=== PATIENT | female | born 1980 | race African-American/Black ===

== ENCOUNTER → 2021-09-24 | Outpatient (CLI) | payer BC, OTHER ==
--- NOTE | 2021-10-22 11:55 | MM ---
Reason for Exam: Screening (asymptomatic). Patient History: Menarche at age 16. First Full-Term at age 20. Excisional Biopsy on the Left side. Excisional Biopsy on the Left side. 2006, Bilateral Implants. Maternal aunt had breast cancer. Maternal aunt had breast cancer. Maternal aunt had breast cancer. Risk Values: July 5 year model risk: 1.0%. Tissue Density: The breast tissue is extremely dense which could obscure a lesion on mammography. Findings: Analyzed By CAD. Mammotome biopsy clip left breast. Anterior upper outer quadrant shows obscured round roughly 10 mm adjacent densities. Group of punctate calcifications in the right breast noted. Overall Assessment: Incomplete: need additional imaging evaluation, BI-RAD 0 Management: Diagnostic Breast Ultrasound of the left breast. Targeted ultrasound now. Continue to attempt to obtain outside prior mammograms in patient with biopsy clip. Electronically signed and approved by: Dejuan Mcgee M.D.
== END | disposition home or self-care (01) ==
LOC: RADMAMWWP 12:13
PROVIDERS: ATTEND Family Medicine
DX: Z12.31 Encounter for screening mammogram for malignant neoplasm of breast (principal)
CPT/HCPCS: 77067

== ENCOUNTER → 2021-10-26 | Outpatient (CLI) | payer BC, OTHER ==
--- NOTE | 2021-10-26 13:54 | USB ---
Patient History: Menarche at age 16. First Full-Term at age 20. Excisional Biopsy on the Left side. Excisional Biopsy on the Left side. 2006, Bilateral Implants. Maternal aunt had breast cancer. Maternal aunt had breast cancer. Maternal aunt had breast cancer. Risk Values: July 5 year model risk: 1.0%. NCI Lifetime model risk: 10.8%. Technique: Method: Targeted. Prior Study Comparison: 09/24/2021 Bilateral MG screening mammo w CAD, [facility]. Findings: The upper outer quadrant of the left breast, the axilla of the left breast and the retroareolar of the left breast were scanned. Targeted scanning upper-outer quadrant left breast from 12:00 to 3:00 including the subareolar region and axilla. There is a large lobulated solid mass redemonstrated at the 1:00 position, zone A. This measures 5.2 x 3.6 x 2.0 cm. In comparison, compared to 07/02/2014, this measured 4.4 x 3.8 x 1.9 cm. Overall similar appearance though minimally larger now. We note that this area was previously biopsied and a clip is subtly visualized within the mass. No other solid or cystic lesion is seen. Underlying breast implant is noted.. Overall Assessment: Probably benign, BI-RAD 3 Management: Diagnostic Mammogram of both breasts in 1 year. 1. Large lobulated 1:00 periareolar mass within the left breast measuring up to 5.2 cm, slightly larger from 2015 where it measured 4.4 cm. 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 Further clinical management is recommended of this lesion. If it becomes symptomatic or progressive growth is noted, surgical consultation can be performed for excision. 2. Otherwise, one-year follow-up bilateral diagnostic mammograms at the time of the patient's annual study 3. The patient should continue monthly self breast exams. Electronically signed and approved by: Kolby Lopez M.D. Radiologist
== END | disposition home or self-care (01) ==
LOC: RADUSWWP 12:59
PROVIDERS: ATTEND Family Medicine
DX: R92.8 Other abnormal and inconclusive findings on diagnostic imaging of breast (principal)

== ENCOUNTER 2021-12-02 14:24 | Day surgery (SDC) | payer BC, OTHER ==
[2021-11-26 16:06] VITALS: BMI 26.6
--- NOTE | 2021-12-02 12:31 | P.HPOB ---
History of Present Illness H&P Date: 12/02/21 Chief Complaint: Menorrhagia 41-year-old presents for D&C, hysteroscopy, endometrial ablation with NovaSure due to menorrhagia. Review of Systems All systems: negative Constitutional: Denies chills, Denies fever Eyes: denies blurred vision, denies pain Ears, nose, mouth and throat: Denies headache, Denies sore throat Cardiovascular: Denies chest pain, Denies shortness of breath Respiratory: Denies cough Gastrointestinal: Denies abdominal pain, Denies diarrhea, Denies nausea, Denies vomiting Genitourinary: Denies dysuria, Denies hematuria Musculoskeletal: Denies myalgias Integumentary: Denies pruritus, Denies rash Neurological: Denies numbness, Denies weakness Psychiatric: Denies anxiety, Denies depression Endocrine: Denies fatigue, Denies weight change Past Medical History Past Medical History: Asthma Additional Past Medical History / Comment(s): Anemia with iron infusions., heavy menstrual periods. History of Any Multi-Drug Resistant Organisms: None Reported Past Surgical History: Breast Surgery Additional Past Surgical History / Comment(s): breast augmentation Past Anesthesia/Blood Transfusion Reactions: No Reported Reaction Additional Past Anesthesia/Blood Transfusion Reaction / Comment(s): Religiously opposed to blood transfusions-jehovah witness Past Psychological History: No Psychological Hx Reported Smoking Status: Former smoker Past Alcohol Use History: Occasional Additional Past Alcohol Use History / Comment(s): QUIT SMOKING 18 YRS AGO, SMOKED APPROX 2 YEARS. Past Drug Use History: None Reported Medications and Allergies Home Medications Medication Instructions Recorded Confirmed Type Albuterol Inhaler [Ventolin Hfa 2 puff INHALATION QID PRN 08/31/21 11/26/21 History Inhaler] Allergies Allergy/AdvReac Type Severity Reaction Status Date / Time No Known Allergies Allergy Verified 11/26/21 15:47 Exam Osteopathic Statement: *. No significant issues noted on an osteopathic structural exam other than those noted in the History and Physical/Consult. Heart: Regular rate and rhythm Lungs: Clear to auscultation bilaterally Abdomen: Soft, nontender Extremities: Negative Homans sign Assessment and Plan (1) Menorrhagia Status: Acute Code(s): N92.0 - EXCESSIVE AND FREQUENT MENSTRUATION WITH REGULAR CYCLE SNOMED Code(s): 090857479 Plan: 1. D&C, hysteroscopy, endometrial ablation with NovaSure
[~2021-12-02 14:24] MED LIST: DEXAMETHASONE SOD PHOSPHATE 4 MG/ML 1 ML VIAL IV ONE; HYDROmorphone 0.5 MG/0.5 ML SYRINGE IVP PRN; LACTATED RINGERS 1,000 ML IV SCH; LIDOCAINE 1% (10MG/ML) FOR IV START INTRADERMA PRN; MIDAZOLAM 2 MG/2 ML VIAL IV PRN; ONDANSETRON 4 MG/2 ML VIAL IVP ONE; Pre Op ABX Message 1 EACH MISC MISCELLANE ONE
[2021-12-02] MEDS ORDERED: MIDAZOLAM 2 MG/2 ML VIAL ONE (16:16)
[2021-12-02] MEDS ORDERED: PROPOFOL 10 MG/ML 20 ML VIAL IV ONE (16:16)
[2021-12-02] MEDS ORDERED: fentaNYL (PF) 50 MCG/ML 2 ML AMP ONE (16:16)
[2021-12-02] MEDS ORDERED: GLYCOPYRROLATE 0.2 MG/ML 2 ML VIAL ONE (16:16)
--- NOTE | 2021-12-02 17:08 | P.OP ---
Date of Procedure: 12/02/21 Preoperative Diagnosis: 1. Menorrhagia Postoperative Diagnosis: 1. Menorrhagia with anemia Procedure(s) Performed: D&C hysteroscopy ; attempted ablation with NovaSure but did not complete Anesthesia: MAC (LMA) Surgeon: Saima Reed Estimated Blood Loss (ml): 50 IV fluids (ml): 500 Urine output (ml): 20 Pathology: other (Endometrial curettings) Condition: stable Disposition: PACU Operative Findings: Uterus sounded to 14 cm. Polyp noted on hysteroscope. Large amount of endometrial curettings Description of Procedure: Patient name the operating room and general anesthesia was obtained without di fficulty. She is prepped and draped in normal sterile fashion dorsal lithotomy position, legs Placed in the candycane stirrups. Bladder was drained of all urine. Weighted speculum place in vagina and anterior lip the cervix was grasped with a double-tooth tenaculum. The cervix sounded to 3 cm and the uterus sounded to 14 cm making the cavity length 11 cm. The NovaSure only goes up to 6.5 cm. The cervix is dilated to #8 Hegar dilator. Hysteroscopy was performed and overall the uterus had a smooth contour but there was a polyp on the left side that was quite large. Polyp forceps were used to remove the polyp and sharp curet was used to gently obtain endometrial curettings. The NovaSure was introduced into the uterus with a cavity length of 6.5 cm, width 4.8 cm. Power 172 W. After several attempts the cavity assessment was not passed. Hysteroscopy was again performed and no areas of perforation were noted. I did use the curette again to get more tissue, changed the machine and the array as well as put some Vaseline gauze around the cervix to attempt to pass the cavity assessment. Cavity assessment again was not passed so the procedure was abandoned. Patient procedure well, sponge and instrument counts correct 2. She is taken to recovery in stable condition.
[2021-12-02 17:09] VITALS: TEMP 96.3
[2021-12-02 17:24] VITALS: RESP 16
[2021-12-02 17:55] VITALS: BP 119/73; PULSE 65
== END 2021-12-02 18:14 | disposition home or self-care (01) ==
LOC: OR 14:24
PROVIDERS: ATTEND Obstetrics & Gynecology
DX: N84.0 Polyp of corpus uteri (principal); N92.0 Excessive and frequent menstruation with regular cycle; D64.9 Anemia, unspecified; J45.909 Unspecified asthma, uncomplicated; Z87.891 Personal history of nicotine dependence
CPT/HCPCS: 81025; 88305; 58558; J2250; J1100; J2405; J3010; J2704